=== PATIENT | female | born 1975 | race Caucasian/White ===

== ENCOUNTER → 2017-03-23 | Outpatient (CLI) | payer BC ==
--- NOTE | 2017-03-23 11:14 | WWHP ---
[facility] - HISTORY AND PHYSICAL DATE OF DICTATION: 03/27/2017 CHIEF COMPLAINT: The patient is here for her routine gynecologic exam and mammogram. HPI: This is a 41-year-old, G5, P3-0-2-3 with an LMP of 03/01/2017. The patient is here to establish with this office. She is interested in control. She has used oral contraceptives without any major problems. She did not like the Mirena IUD since she felt hormonal with this and did not like the ParaGard IUD because of changes in her periods and did seem to get more vaginal infections. She is and is currently dating somebody, but has not been sexually active with this person. She states her menses are regular every month. She is without gynecologic complaints. PAST MEDICAL HISTORY: Unremarkable. MEDICATIONS: None. ALLERGIES: She believes STEROIDS caused some retinal issues. PAST SURGICAL HISTORY: [place] teeth removed. PAST OB HISTORY: One spontaneous followed by three vaginal deliveries and this was followed by one voluntary termination of . 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 SOCIAL HISTORY: She denies tobacco and drug use and has about 10 alcohol-containing drinks per week. She is . The divorce was finalized one year ago. She has had two other sexual partners after the divorce. She is currently dating somebody and has not been sexually active with him. 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 FAMILY HISTORY: A grandfather and uncle had prostate cancer. She believes a paternal grandfather had colon cancer. Mother has hypertension and diabetes. Father and maternal uncle had an [place]. Grandmother also had type 2 diabetes. REVIEW OF SYSTEMS: Weight has been stable. She denies respiratory or cardiac problems. GI: She has occasional indigestion. PHYSICAL EXAM: Blood pressure 124/71, height 5 feet 3 inches, weight 156 pounds, temperature 98.4, pulse 75, BMI 28. This is a well-developed, well-nourished, white female, who is alert and oriented x3, in no acute distress. HEENT is within normal limits. NECK: Supple without mass or thyromegaly. CHEST AND LUNGS: Clear to auscultation. HEART: Regular rate and rhythm. Breasts are without mass or discharge. Axillary exam is negative for adenopathy. Back negative for CVA tenderness. ABDOMEN: Soft, nontender, without palpable masses. PELVIC EXAM: Normal external genitalia. Cervix appears multiparous without lesions. There is no unusual discharge. Cervix appears normal. The uterus is mid position, nongravid size and nontender. There are no there are no palpable adnexal masses or tenderness. Rectal exam is negative for mass or tenderness and is negative for occult blood. EXTREMITIES: Nontender. IMPRESSION: 1. A 41-year-old gynecologically healthy female with normal gynecologic exam. 2. Patient is requesting control. PLAN: 1. Pap smear was performed. 2. Self-breast examination was discussed. 3. Mammogram will be done today. 4. We have discussed various options including barrier methods, hormonal methods, male and female sterilization as well as IUD. After a long discussion regarding control, she would like to try the Nuva ring. She was instructed to insert the 1st ring on the first day of her next normal menstrual period. Instructions on its use was given to the patient. She will also read the instructions that come with the ring before using it. 5. GC and chlamydia screening were obtained from the cervix. STD prevention was also discussed. I have also recommended that she use condoms for STD prevention if she is sexually active, as well as the importance of limiting sexual partners. 6. She will return in one year. MMODL / IJN: [id number] /
--- NOTE | 2017-03-24 11:43 | MM ---
Reason for exam: screening (asymptomatic). Last mammogram was performed 2 years and 4 months ago. Physical Findings: A clinical breast exam by your physician is recommended on an annual basis and results should be correlated with mammographic findings. MG Screening Mammo w CAD Bilateral CC and MLO view(s) were taken. Prior study comparison: November 26, 2014, bilateral MG diagnostic mammo w CAD [facility]. The breast tissue is heterogeneously dense. This may lower the sensitivity of mammography. There is no discrete abnormality. No significant changes when compared with prior studies. ASSESSMENT: Negative, BI-RAD 1 RECOMMENDATION: Routine screening mammogram of both breasts in 1 year.
[2017-03-24 16:16] LABS: C. trachomatis,PCR Negative (Neg,Equiv); Chlamydia trachomatis Source Cervix; N. gonorrhoeae,PCR Negative (Neg,Equiv); Neisseria Source Cervix
== END | disposition home or self-care (01) ==
LOC: WWCWWP 08:04
PROVIDERS: ATTEND Obstetrics & Gynecology
DX: Z12.31 Encounter for screening mammogram for malignant neoplasm of breast (principal); Z11.3 Encounter for screening for infections with a predominantly sexual mode of transmission
CPT/HCPCS: 77067; 87491; 87591

== ENCOUNTER → 2018-12-20 | Outpatient (CLI) | payer BC ==
[2018-12-20 08:09] VITALS: BP 113/63; PULSE 73; RESP 18; TEMP 98.8; BMI 29.0
--- NOTE | 2018-12-20 08:46 | P.HPOB ---
History of Present Illness H&P Date: 12/20/18 Chief Complaint: The patient is here for her routine gynecologic exam and ma mmogram. This is a 43-year-old with an LMP of 11/30/2018. The patient is without gynecologic complaints. She did not use the NuvaRing as prescribed last year. She was concerned about her sensitivity to hormonal methods of control. She does not seem to tolerate hormonal methods and even felt hormonal using the Mirena IUD. She has been using withdrawal for control. She is contemplating tubal sterilization. Review of Systems The patient has gained 8 pounds over the last year. She denies respiratory, cardiac, or G.I. problems. 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 History of Any Multi-Drug Resistant Organisms: None Reported Smoking Status: Former smoker Medications and Allergies Home Medications Medication Instructions Recorded Confirmed Type Multivitamin [Multivitamins Adult 1 each PO DAILY 12/20/18 12/20/18 History Gummies] Ranitidine HCl [Zantac] 75 mg PO HS PRN 12/20/18 12/20/18 History Allergies Allergy/AdvReac Type Severity Reaction Status Date / Time STEROIDS Allergy Unknown Uncoded 12/20/18 08:09 Exam Vital Signs Temp Pulse Resp BP Pulse Ox 12/20/18 08:01 98.8 F 73 18 113/63 97 Intake and Output 12/19/18 12/20/18 12/20/18 22:59 06:59 14:59 Other: Weight 74.389 kg Height 5 feet 3 inches, weight 164 pounds, BMI 29.1. This is a well-developed well-nourished white female who is alert and oriented times 3 in no acute distress. HEENT: Within normal limits. NECK: Supple without mass or thyromegaly. CHEST AND LUNGS: Clear to auscultation. HEART: Regular rate and rhythm. BREASTS: Are without mass or discharge. AXILLARY EXAM: Negative for adenopathy. BACK: Negative for CVA tenderness. ABDOMEN: Soft, nontender, without palpable masses. PELVIC EXAM: Normal external genitalia. Cervix and vagina appear normal. There is no unusual discharge. There is no evidence of prolapse. The uterus is midposition, nongravid size and nontender. There are no palpable adnexal masses or tenderness. RECTAL EXAM: negative for mass or tenderness and is negative for occult blood. EXTREMITIES: Nontender. IMPRESSION: 1. 43-year-old female with normal gynecologic exam using withdrawal for control. 2. Undesired fertility. 3. Previous ASCUS Pap smear with negative high-risk HPV testing on 03/23/2017. PLAN: 1. Pap smear was deferred. Pap smear with high-risk HPV testing (cotest) will be done in 1 year. 2. Self breast awareness was discussed with the patient. 3. Screening mammogram will be done today. 4. Osteoporosis prevention was discussed. I have stressed the importance of adequate calcium, vitamin D and regular exercise. Recommended amounts of calcium and vitamin D were also discussed. 5. We have had a long discussion regarding control options. She is aware that withdrawal alone has a relatively high failure rate. She is declining any hormonal method. We have discussed other options including sterilization and nonhormonal IUD. She is interested in tubal sterilization. She states she is going to see Dr. Laboy for this since she has seen him in the past. 6. She was advised to return in one year for her annual well woman exam.
--- NOTE | 2018-12-21 11:08 | MM ---
Reason for exam: screening (asymptomatic). Last mammogram was performed 1 year and 9 months ago. Physical Findings: A clinical breast exam by your physician is recommended on an annual basis and results should be correlated with mammographic findings. MG Screening Mammo w CAD Bilateral CC and MLO view(s) were taken. Prior study comparison: March 23, 2017, bilateral MG screening mammo w CAD. November 26, 2014, bilateral MG diagnostic mammo w CAD [facility]. There are scattered fibroglandular densities. There is no discrete abnormality. No significant changes when compared with prior studies. ASSESSMENT: Negative, BI-RAD 1 RECOMMENDATION: Routine screening mammogram of both breasts in 1 year.
== END | disposition home or self-care (01) ==
LOC: WWCWWP 07:55
PROVIDERS: ATTEND Obstetrics & Gynecology
DX: Z12.31 Encounter for screening mammogram for malignant neoplasm of breast (principal)
CPT/HCPCS: 77067

== ENCOUNTER → 2019-12-26 | Outpatient (CLI) | payer BC ==
[2019-12-26 11:02] VITALS: BP 107/78; PULSE 68; RESP 16; TEMP 98.6
--- NOTE | 2019-12-26 11:41 | P.HPOB ---
History of Present Illness H&P Date: 12/26/19 Chief Complaint: The patient is here for her routine gynecologic exam. This is a 44-year-old 0-3 with an LMP of 12/05/2019. The patient previously was looking into getting a tubal ligation for undesired fertility. A referral was made, but she did not have this done. She states she probably will I have this done when she has more time. She had been given a prescription for the NuvaRing but she did not use it. She was concerned that she may develop hormonal side effects since she had hormonal side effects with the Mirena IUD. She has been using withdrawal for control. She is currently declining anything for control, but states she will look into doing a tubal ligation in the future. ParaGard IUD caused very heavy menstrual periods in the past. Menses are regular every month. She denies hot flashes. She is without gynecologic complaints. Review of Systems The patient has lost 8 pounds over the last year. She has been trying to exercise more and has been running. She denies respiratory, cardiac, or G.I. pr oblems. 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 Cryotherapy of the cervix is a teenager. History of Any Multi-Drug Resistant Organisms: None Reported Past Surgical History: No Surgical Hx Reported Past Psychological History: Anxiety Smoking Status: Former smoker Past Alcohol Use History: Occasional (5 per week) Additional Past Alcohol Use History / Comment(s): Quit smoking 2002. Past Drug Use History: None Reported Additional History: She is . She has been with her boyfriend since 2016 and lives with him. 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 - Past Family History Father Family Medical History: Myocardial Infarction ([place]) Additional Family Medical History / Comment(s): Paternal grandfather had colon cancer. Mother Family Medical History: Diabetes Mellitus, Myocardial Infarction ([place]) Additional Family Medical History / Comment(s): Maternal grandmother had diabetes. Medications and Allergies Home Medications Medication Instructions Recorded Confirmed Type Multivitamin [Multivitamins Adult 1 each PO DAILY 12/20/18 12/26/19 History Gummies] Allergies Allergy/AdvReac Type Severity Reaction Status Date / Time STEROIDS Allergy Unknown Uncoded 12/26/19 10:54 Exam Vital Signs Temp Pulse Resp BP Pulse Ox 12/26/19 10:55 98.6 F 68 16 107/78 98 Intake and Output 12/25/19 12/26/19 12/26/19 22:59 06:59 14:59 Other: Weight 70.76 kg Height 5 feet 4-1/2 inches, weight 156 pounds, BMI 26.4. This is a well-developed well-nourished white female who is alert and oriented times 3 in no acute distress. HEENT: Within normal limits. NECK: Supple without mass or thyromegaly. CHEST AND LUNGS: Clear to auscultation. HEART: Regular rate and rhythm. BREASTS: Are without mass or discharge. AXILLARY EXAM: Negative for adenopathy. BACK: Negative for CVA tenderness. ABDOMEN: Soft, nontender, without palpable masses. PELVIC EXAM: Normal external genitalia. Cervix is without lesions and has the appearance of a previous cryotherapy. Vagina appears normal. There is no unusual discharge. There is no evidence of prolapse. The uterus is midpos ition, nongravid size and nontender. There are no palpable adnexal masses or tenderness. RECTAL EXAM: negative for mass or tenderness and is negative for occult blood. EXTREMITIES: Nontender. IMPRESSION: 1. 44-year-old female using withdrawal for control with normal gynecologic exam. 2. Previous ASCUS Pap smear with negative high-risk HPV testing on 03/23/2017. PLAN: 1. Pap smear was performed. High-risk HPV testing will also be done. 2. Self breast awareness was discussed with the patient. 3. The patient is declining screening mammogram since she had a normal one last year. We will plan on doing this next year. 4. Osteoporosis prevention was discussed. I have stressed the importance of adequate calcium, vitamin D and regular exercise. Recommended amounts of calcium and vitamin D were also discussed. 5. With control options were discussed with the patient. She would like to have a tubal sterilization, but is not ready at this time for personal reasons. We discussed other options such as hormonal methods, condoms, and for types of IUDs. She has had issues with hormonal methods and both progestin IUDs and copper IUDs. She will let me know if she would like to proceed with tubal sterilization or if she is considering any other type of control. At this time she is declining any other method of control. 6. She was advised to return in one year for her annual well woman exam.
--- NOTE | 2020-01-08 10:26 | P.PN ---
Progress Note - Text Progress Note Date: 01/08/20 OUTPATIENT FOLLOW-UP NOTE TEST(S)/RESULTS: Test results from 12/26/2019 include negative Pap smear cytology and positive high-risk HPV testing (-16,-18). METHOD OF NOTIFICATION: Patient was notified by phone. PATIENT COMMENTS: The patient states she had an abnormal Pap smear that did require a colposcopy more than 5 years ago. Colposcopy was done by Dr. Garcia. DIAGNOSIS: Negative Pap smear cytology with positive high-risk HPV testing. DISCUSSION: The patient's previous Pap smear on 03/23/2017 showed ASCUS with negative high-risk HPV testing. We have discussed how it appears she has been exposed to HPV, but it is unclear as to how long ago the exposure was. She had HPV years ago. The ASCCP 5 year risk for CINIII+ is 2.4%. Follow-up testing in 1 year is recommended. PLAN: Cotest in one year. I have stressed the importance of having this done. She should do whatever she can to avoid exposure to other types of HPV. She was advised to return in one year for her annual well woman exam.
== END | disposition home or self-care (01) ==
LOC: WWCWWP 10:45
PROVIDERS: ATTEND Obstetrics & Gynecology
DX: Z53.9 Procedure and treatment not carried out, unspecified reason (principal)

== ENCOUNTER → 2020-01-11 | Outpatient (CLI) | payer BC | END | disposition home or self-care (01) | LOC: LABWHC1 16:00 | PROVIDERS: ATTEND Family Medicine | DX: Z20.828 Contact with and (suspected) exposure to other viral communicable diseases (principal) | CPT/HCPCS: U0003; C9803 ==

== ENCOUNTER → 2021-02-24 | Outpatient (CLI) | payer BC ==
[2021-02-24 12:17] LABS: Basophils % (A) 1 %; Eosinophils # (A) 0.1 k/uL (0-0.7); Eosinophils % (A) 1 %; HCT 41.1 % (34.0-46.0); HGB 13.9 gm/dL (11.4-16.0); Lymphocytes # (A) 1.9 k/uL (1.0-4.8); Lymphocytes % (A) 33 %; MCH 32.3 pg (25.0-35.0); MCHC 33.8 g/dL (31.0-37.0); MCV 95.7 fL (80.0-100.0); Mean Platelet Volume 7.4; Monocytes # (A) 0.3 k/uL (0-1.0); Monocytes % (A) 5 %; Neutrophils # (A) 3.2 k/uL (1.3-7.7); Neutrophils % (A) 56 %; Platelet Count 330 k/uL (150-450); RBC 4.29 m/uL (3.80-5.40); RDW 11.9 % (11.5-15.5); WBC 5.6 k/uL (3.8-10.6)
== END | disposition home or self-care (01) ==
LOC: LABPAT 11:14
PROVIDERS: ATTEND Obstetrics & Gynecology
DX: Z01.812 Encounter for preprocedural laboratory examination (principal)
CPT/HCPCS: 85025

== ENCOUNTER 2021-03-23 08:49 | Day surgery (SDC) | payer BC ==
[2021-03-19 14:40] VITALS: BMI 29.7
--- NOTE | 2021-03-19 14:53 | HP ---
HISTORY AND PHYSICAL REASON FOR ADMISSION: Surgery scheduled for March 23. HISTORY OF PRESENT ILLNESS: The patient is a 45-year-old 5, para 3-0-2-3, who presents for discussion of permanent sterilization. She requests tubal ligation as she has no further interest in childbearing and has had issues in the past with hormonal contraception of which she has tried multiple different types. As a result, she has requested permanent sterilization by laparoscopy using Filshie clips. PAST MEDICAL HISTORY: Significant for central serous retinopathy, history of depression. PAST SURGICAL HISTORY: Significant only for wisdom teeth extraction. 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 Method of contraception has been vasectomy, but the patient is in the process of divorce. Gynecologic history: Unremarkable with no history of any infections to include STDs. FAMILY HISTORY: Noncontributory. SOCIAL HISTORY: The patient is currently , but in the process of divorce. She is a former smoker having quit in 2001. She reports occasional alcohol. No other social concerns. CURRENT MEDICATIONS: None. ALLERGIES: ARE TO SOME FORM OF STEROIDS. REVIEW OF SYSTEMS: Is confined to history of present illness. PHYSICAL EXAMINATION: Vital signs are stable. The patient is afebrile. In general, this is a well- developed, well-nourished white female in no acute distress. Her heart has a regular rhythm and rate without murmur. Her lungs are clear to auscultation bilateral in all wong. Her abdomen is nondistended, has normoactive bowel sounds, soft, nontender, and without any palpable masses, hepatosplenomegaly, or hernias. Her extremities are without any cyanosis, clubbing, or edema and are nontender to palpation bilaterally. Pelvic examination is deferred to the operating room. ASSESSMENT: Undesired fertility: The patient has declined alternative reversible options for control and requested laparoscopic bilateral tubal occlusion with Filshie clips. The risks and complications of the procedure have been thoroughly discussed including risk for bleeding, bleeding requiring transfusion, infection, and injury to local structures to specifically include bowel, bladder, and ureters. She has understood all these concerns and has agreed to proceed. We are scheduled for surgery on the morning of March 23, 2021 MMODL / IJN: [id number] /
[~2021-03-23 08:49] MED LIST: HYDROmorphone 0.5 MG/0.5 ML SYRINGE IVP PRN; LACTATED RINGERS 1,000 ML IV SCH; LIDOCAINE 1% (10MG/ML) FOR IV START INTRADERMA PRN; ONDANSETRON 4 MG/2 ML VIAL IVP ONE; Pre Op ABX Message 1 EACH MISC MISCELLANE ONE; SCOPOLAMINE 1.5MG/72HR PATCH TRANSDERM ONE
[2021-03-23] MEDS ORDERED: METOCLOPRAMIDE 5 MG/ML 2 ML VIAL ONE (09:41)
[2021-03-23] MEDS ORDERED: ONDANSETRON 4 MG/2 ML VIAL IVP ONE (09:42)
[2021-03-23] MEDS ORDERED: METOCLOPRAMIDE 5 MG/ML 2 ML VIAL IVP ONE (09:44)
[2021-03-23] MEDS ORDERED: SCOPOLAMINE 1.5MG/72HR PATCH TRANSDERM ONE (09:45)
[2021-03-23] MEDS ORDERED: GLYCOPYRROLATE 0.2 MG/ML 2 ML VIAL ONE (10:27)
[2021-03-23] MEDS ORDERED: ROCURONIUM 10 MG/ML (5 ML VIAL) IV ONE (10:27)
[2021-03-23] MEDS ORDERED: LIDOCAINE 1% INJ 10MG/ML (20 ML MDV) ONE (10:27)
[2021-03-23] MEDS ORDERED: NEOSTIGMINE 1 MG/ML 10 ML VIAL ONE (10:27)
[2021-03-23] MEDS ORDERED: fentaNYL (PF) 50 MCG/ML 2 ML AMP ONE (10:27)
[2021-03-23] MEDS ORDERED: MIDAZOLAM 2 MG/2 ML VIAL ONE (10:27)
[2021-03-23] MEDS ORDERED: PROPOFOL 10 MG/ML 20 ML VIAL IV ONE (10:27)
[2021-03-23] MEDS ORDERED: KETOROLAC 15 MG/ML 1 ML VIAL ONE (10:27)
[2021-03-23] MEDS ORDERED: BUPIVACAINE (PF) 0.5% 30 ML VIAL SQ ONE ×2 (10:50→11:03)
[2021-03-23] MEDS ORDERED: IBUPROFEN 600 MG TAB PO PRN (11:08)
[2021-03-23] MEDS ORDERED: SIMETHICONE 80 MG CHEWABLE PO PRN (11:08)
[2021-03-23] MEDS ORDERED: METOCLOPRAMIDE 5 MG/ML 2 ML VIAL IVP PRN (11:08)
[2021-03-23] MEDS ORDERED: ONDANSETRON 4 MG/2 ML VIAL IVP PRN (11:08)
[2021-03-23] MEDS ORDERED: KETOROLAC 30 MG/ML 1 ML VIAL IVP PRN (11:08)
[2021-03-23] MEDS ORDERED: diphenhydrAMINE 50 MG/ML 1 ML VIAL IVP PRN (11:08)
[2021-03-23] MEDS ORDERED: Acetaminophen-Codeine 300-30mg TAB PO PRN ×2 (11:08)
[2021-03-23] MEDS ORDERED: LACTATED RINGERS 1,000 ML IV SCH (11:15)
--- NOTE | 2021-03-23 11:16 | P.OP ---
Date of Procedure: 03/23/21 Preoperative Diagnosis: #1. Undesired fertility Postoperative Diagnosis: Same Procedure(s) Performed: #1. Laparoscopic bilateral tubal occlusion with Filshie clips Anesthesia: ELEAZAR Surgeon: Florentin Levy Estimated Blood Loss (ml): 5 IV fluids (ml): 300 Urine output (ml): 10 Pathology: none sent Condition: stable Disposition: PACU Operative Findings: Preoperative pelvic examination demonstrated a 5 week anteverted mobile normal shaped uterus with normal adnexa bilaterally. Intraoperatively, the uterus, tubes, and ovaries were entirely normal to inspection of the uterus was somewhat bulky. A Filshie clip was placed firmly across the isthmic portion of each fallopian tube. There was no evidence of endometriosis or other pathology in the pelvis. The small bowel, large bowel, appendix, liver, and diaphragm were entirely normal to inspection. Description of Procedure: The patient was prepped and draped in usual fashion after general endotracheal anesthesia was administered by the anesthesiologist. A speculum was placed and the anterior lip of the cervix grasped with single-tooth tenaculum allowing placement of an acorn cannula without difficulty for manipulation. The bladder was drained of approximately 10 mL of clear michelle urine. The speculum was removed and attention turned to the abdomen where a roughly 5 mm incision was made in a vertical fold of the umbilicus just beneath it allowing insertion of a 5 m optical trocar under direct vision station without difficulty. A pneumoperitoneum was infused and Trendelenburg positioning utilized. A site was then selected in the midline approximately 4-5 cm above the pubic symphysis in the midline where a 8 mm incision was made in the transverse plane allowing insertion of an 8 mm optical trocar under direct visualization without difficulty. The blunt probe was utilized to sweep the bowel from the pelvis and the findings are as noted above. The probe was replaced with a Filshie clip applicator which was used to place a Filshie clip firmly across the isthmic portion of the right fallopian tube approximately 2-3 cm from the cornu of the uterus. A similar operation was carried out on the left without difficulty. The Filshie clip applicator was replaced with the probe and the remainder of the upper abdominal findings are as noted above. After ensuring no evidence of any pathology, the pneumoperitoneum was thoroughly evacuated through the 2 trocar sites and the trochars removed. The skin was reapproximated with interrupted subcuticular stitches of 4-0 Vicryl followed by half-inch Steri-Strips placed with Mastisol. Estimated blood loss for the case was less than 5 mL. There were no complications. The vaginal edge mentation was removed. The patient tolerated the procedure well and proceeded to the recovery room in stable condition.
[2021-03-23 11:25] VITALS: TEMP 97
[2021-03-23 11:34] VITALS: RESP 16
[2021-03-23 12:28] VITALS: BP 103/64; PULSE 61
[2021-03-24] MEDS ORDERED: ACETAMINOPHEN TAB 325 MG TAB PO PRN (11:09)
== END 2021-03-23 12:50 | disposition home or self-care (01) ==
LOC: OR 08:49
PROVIDERS: ATTEND Obstetrics & Gynecology
DX: Z30.2 Encounter for sterilization (principal); H35.719 Central serous chorioretinopathy, unspecified eye; M19.90 Unspecified osteoarthritis, unspecified site; K21.9 Gastro-esophageal reflux disease without esophagitis; F32.A Depression, unspecified; Z87.891 Personal history of nicotine dependence; Z88.8 Allergy status to other drugs, medicaments and biological substances
CPT/HCPCS: 81025; 58671; J2250; J2710; J2765; J2405; J2001; J3010; J1885; J2704

== ENCOUNTER → 2022-02-12 | Outpatient (CLI) | payer BC ==
--- NOTE | 2022-02-15 09:42 | MM ---
Reason for Exam: Screening (asymptomatic). Last mammogram was performed 3 year(s) and 2 month(s) ago. Patient History: Menarche at age 13. First Full-Term at age 29. Risk Values: Tamie 5 year model risk: 0.9%. NCI Lifetime model risk: 10.6%. Prior Study Comparison: 11/26/2014 Bilateral Diagnostic Mammogram, [facility]. 03/23/2017 Bilateral Screening Mammogram, [facility]. 12/20/2018 Bilateral Screening Mammogram, [facility]. Tissue Density: There are scattered fibroglandular densities. Findings: Analyzed By CAD. There is no suspicious new group of microcalcifications or new suspicious mass in either breast. Overall Assessment: Negative, BI-RAD 1 Management: Screening Mammogram of both breasts in 1 year. A clinical breast exam by your physician is recommended on an annual basis and results should be correlated with mammographic findings. Electronically signed and approved by: Robert Sanchez M.D.
== END | disposition home or self-care (01) ==
LOC: RADMAMWWP 08:11
PROVIDERS: ATTEND Obstetrics & Gynecology
DX: Z12.31 Encounter for screening mammogram for malignant neoplasm of breast (principal)
CPT/HCPCS: 77067

== ENCOUNTER → 2024-08-17 | Outpatient (CLI) | payer BC ==
--- NOTE | 2024-08-17 08:43 | MM ---
Reason for Exam: Screening (asymptomatic). Last mammogram was performed 2 year(s) and 6 month(s) ago. Patient History: Menarche at age 13. First Full-Term at age 29. Risk Values: Tamie 5 year model risk: 1.0%. NCI Lifetime model risk: 10.2%. Prior Study Comparison: 03/23/2017 Bilateral Screening Mammogram, [facility]. 12/20/2018 Bilateral Screening Mammogram, [facility]. 02/12/2022 Bilateral MG screening mammo w CAD, [facility]. Tissue Density: The breasts are heterogeneously dense, which may obscure small masses. Findings: Analyzed By CAD. There are bilateral asymmetric densities which are more pronounced. This includes far posterior lateral aspect of the right cc view, small area of asymmetric density inferior right MLO view middle depth, an asymmetric density superior left MLO view depth. These may represent areas of superimposition shadow but further evaluation is recommended. No suspicious microcalcification or other discrete abnormality is seen. Overall Assessment: Incomplete: need additional imaging evaluation, BI-RAD 0 Management: Special View Mammogram of both breasts. [facility] will attempt to contact patient to return for supplemental views and ultrasound if indicated. [facility], , 08/17/2024 8:40 AM. Electronically signed and approved by: Mirtha Youssef M.D. Radiologist
== END | disposition home or self-care (01) ==
LOC: RADMAMWWP 08:07
PROVIDERS: ATTEND Obstetrics & Gynecology
DX: Z12.31 Encounter for screening mammogram for malignant neoplasm of breast (principal); R92.333 Mammographic heterogeneous density, bilateral breasts
CPT/HCPCS: 77067

== ENCOUNTER → 2024-08-22 | Outpatient (CLI) | payer BC ==
--- NOTE | 2024-08-22 08:35 | MM ---
Reason for Exam: Additional evaluation requested from prior study. Last screening mammogram was performed less than 1 month ago. Patient History: Menarche at age 13. First Full-Term at age 29. Risk Values: Tamie 5 year model risk: 1.0%. NCI Lifetime model risk: 10.2%. Prior Study Comparison: 02/12/2022 Bilateral MG screening mammo w CAD, [facility]. 08/17/2024 Bilateral MG screening mammo w CAD, [facility]. Tissue Density: The breasts are heterogeneously dense, which may obscure small masses. Findings: Analyzed By CAD. Area of concern/asymmetry compresses out on spot compression imaging. No suspicious masses, calcifications or distortions. Overall Assessment: Benign, BI-RAD 2 Management: Screening Mammogram of both breasts in 1 year. Results were given to the patient verbally at the time of exam. Patient should continue monthly self-breast exams. A clinical breast exam by your physician is recommended on an annual basis. This exam should not preclude additional follow-up of suspicious palpable abnormalities. Note on Tamie scores and lifetime risk: 1. A Tamie score greater than 3% is considered moderate risk. If this is the case, consider specialist referral to assess eligibility for a risk reducing agent. 2. If overall lifetime risk for the development of breast cancer is 20% or higher, the patient may qualify for future screening with alternating mammogram and breast MRI. [facility], , 08/22/2024 8:31 AM. Electronically signed and approved by: Sanchez Barrera DO
== END | disposition home or self-care (01) ==
LOC: RADMAMWWP 08:11
PROVIDERS: ATTEND Obstetrics & Gynecology
DX: R92.8 Other abnormal and inconclusive findings on diagnostic imaging of breast (principal); R92.333 Mammographic heterogeneous density, bilateral breasts
CPT/HCPCS: 77062; 77066